=== PATIENT | female | born 1970 | race Caucasian/White ===

== ENCOUNTER 2020-12-14 17:16 | Outpatient (CLI) | payer BC, OTHER ==
--- NOTE | 2020-12-15 08:30 | XRAY Report ---
PROCEDURE: Thoracic Spine 2 View INDICATIONS: THORACIC BACK PX TECHNIQUE: 3 views of the thoracic spine were acquired. COMPARISON: None. FINDINGS: Bones: No fractures or dislocations. No suspicious bony lesions. 12 pairs of ribs are noted, and a ppear intact where visualized. Soft tissues: No paravertebral stripe thickening. IMPRESSION: This is a normal study. Reviewed by: Teto Harden MD on 12/15/2020 8:28 AM [facility] Approved by: Teto Harden MD on 12/15/2020 8:28 AM [facility] Station ID: [id number]
== END 2020-12-14 23:59 | disposition home or self-care (01) ==
LOC: DI.N 17:16
PROVIDERS: ATTEND Physician Assistant Medical
DX: M54.6 Pain in thoracic spine (principal)

== ENCOUNTER 2021-02-12 08:00 | Outpatient (CLI) | payer BC, OTHER | END 2021-02-12 23:59 | disposition home or self-care (01) | LOC: LAB.R 08:00 | PROVIDERS: ATTEND Family Medicine | DX: N39.0 Urinary tract infection, site not specified (principal) | CPT/HCPCS: 87086; 87181 ==

== ENCOUNTER 2023-07-03 16:39 | Outpatient (CLI) | payer BC, OTHER | END 2023-07-03 16:40 | disposition short-term general hospital (02) | LOC: EMS 16:39 | DX: M54.9 Dorsalgia, unspecified (principal); R20.2 Paresthesia of skin; R00.0 Tachycardia, unspecified; R06.4 Hyperventilation | CPT/HCPCS: A0425; A0427 ==